=== PATIENT | male | born 1950 | race Hispanic/Latino ===

== ENCOUNTER 2016-10-25 20:16 | Emergency (ER) | payer MEDICARE ==
[2016-10-25 21:53] LABS: Basophils % (Auto) 0.4 % (0.0-1.8); Hematocrit 35.2 % (35.5-45.6); Hemoglobin 11.4 gm/dl (11.8-15.2); Mean Corpuscular HGB Conc 32 % (32-34); Mean Corpuscular Hemoglobin 28 pg (28-32); Mean Corpuscular Volume 86 fl (84-94); Platelet Count 183 K/mm3 (140-440); Red Blood Count 4.11 M/mm3 (3.65-5.03)
--- NOTE | 2016-10-25 22:00 | Emergency Department Report ---
- General Chief Complaint: Upper Respiratory Infection Stated Complaint: TOI Time Seen by Provider: 10/25/16 21:53 Source: patient Mode of arrival: Ambulatory Limitations: No Limitations - History of Present Illness Initial Comments: This is a pleasant 66-year-old gentleman who reports exertional dyspnea for the past couple of weeks. He actually was in the hospital he can go with a very significant illness due to hyperglycemia, acute renal failure, hyperkalemia. He did spend several days in the ICU. Sugars were normalized. And ultimately he went back home on October 18. He states even prior to his hospitalizations was us especially since he's noted increasing shortness of breath. He says a sensation of phlegm that he is not able to mobilize in his chest. He states that occasionally get a bunch out and he does subjectively feel improved when he is able to get this to come out. He denies fevers. Again he does report increased fatigue. He has been compliant with all the medications given to him through his doctor. Of note as well just after discharge she reported getting a rash on his arms and neck and anterior chest wall region as well. He states that this was initially very itchy. It is now somewhat improved. - Related Data Home Medications Medication Instructions Recorded Confirmed Last Taken Ranitidine HCl [Ranitidine 150mg 150 mg PO BID 07/25/13 10/15/16 10/14/16 Cap] Amiodarone HCl [Amiodarone 100 MG 200 mg PO DAILY 10/15/16 10/15/16 10/14/16 TAB] Previous Rx's Medication Instructions Recorded Last Taken Type Aspirin [Aspirin TAB] 325 mg PO QDAY #30 tablet 10/17/16 Unknown Rx Atenolol [Tenormin] 25 mg PO BID #60 tablet 10/17/16 Unknown Rx AtorvaSTATin [Lipitor] 20 mg PO HS #30 tablet 10/17/16 Unknown Rx Benzonatate [Tessalon Perles] 100 mg PO Q8HR #15 capsule 10/17/16 Unknown Rx Bisacodyl [Dulcolax suppos] 10 mg NJ QDAY PRN #20 supp.rect 10/17/16 Unknown Rx Insulin Detemir [Levemir] 20 units SUB-Q DAILY 30 Days 10/17/16 Unknown Rx Doxycycline [Vibramycin CAP] 100 mg PO Q12HR #14 capsule 10/25/16 Unknown Rx Allergies Allergy/AdvReac Type Severity Reaction Status Date / Time No Known Allergies Allergy Unverified 07/25/13 17:33 ED Review of Systems ROS: Stated complaint: TOI Other details as noted in HPI Comment: All other systems reviewed and negative Constitutional: denies: chills, fever Eyes: denies: eye pain, eye discharge, vision change ENT: denies: ear pain, throat pain Respiratory: cough, shortness of breath, SOB with exertion. denies: wheezing Cardiovascular: denies: chest pain, palpitations Endocrine: no symptoms reported Gastrointestinal: denies: abdominal pain, nausea, diarrhea Genitourinary: other (normal urine output reported.). denies: urgency, dysuria Musculoskeletal: denies: back pain, joint swelling, arthralgia Skin: rash. denies: lesions Neurological: denies: headache, weakness, paresthesias Psychiatric: denies: anxiety, depression Hematological/Lymphatic: denies: easy bleeding, easy bruising ED Past Medical Hx - Past Medical History Previous Medical History?: Yes Hx Hypertension: Yes Hx Heart Attack/AMI: Yes Hx Congestive Heart Failure: No Hx Diabetes: Yes Hx GERD: Yes Hx Asthma: No Hx COPD: No Hx HIV: No - Surgical History Past Surgical History?: Yes Hx Coronary Stent: Yes (2001) Hx Open Heart Surgery: Yes (triple CABG 2004) Additional Surgical History: Left hip and pelvic surgury w/hip replacement 2006 - Social History Smoking Status: Never Smoker Substance Use Type: Marijuana - Medications Home Medications: Home Medications Medication Instructions Recorded Confirmed Last Taken Type Ranitidine HCl [Ranitidine 150mg 150 mg PO BID 07/25/13 10/15/16 10/14/16 History Cap] Amiodarone HCl [Amiodarone 100 MG 200 mg PO DAILY 10/15/16 10/15/16 10/14/16 History TAB] Aspirin [Aspirin TAB] 325 mg PO QDAY #30 tablet 10/17/16 Unknown Rx Atenolol [Tenormin] 25 mg PO BID #60 tablet 10/17/16 Unknown Rx AtorvaSTATin [Lipitor] 20 mg PO HS #30 tablet 10/17/16 Unknown Rx Benzonatate [Tessalon Perles] 100 mg PO Q8HR #15 capsule 10/17/16 Unknown Rx Bisacodyl [Dulcolax suppos] 10 mg NJ QDAY PRN #20 supp.rect 10/17/16 Unknown Rx Insulin Detemir [Levemir] 20 units SUB-Q DAILY 30 Days 10/17/16 Unknown Rx Doxycycline [Vibramycin CAP] 100 mg PO Q12HR #14 capsule 10/25/16 Unknown Rx ED Physical Exam - General Limitations: No Limitations General appearance: alert, in no apparent distress - Head Head exam: Present: atraumatic, normocephalic - Eye Eye exam: Present: normal appearance, EOMI. Absent: scleral icterus - ENT ENT exam: Present: normal exam, normal orophraynx, mucous membranes moist - Neck Neck exam: Present: normal inspection, full ROM. Absent: meningismus, lymphadenopathy - Respiratory Respiratory exam: Present: normal lung sounds bilaterally, other (appears slightly dyspneic while I walk in the room.). Absent: respiratory distress, wheezes, rales - Cardiovascular Cardiovascular Exam: Present: regular rate, normal rhythm. Absent: systolic murmur, diastolic murmur, rubs, gallop - GI/Abdominal GI/Abdominal exam: Present: soft, normal bowel sounds. Absent: distended, tenderness - Rectal Rectal exam: Present: deferred - Extremities Exam Extremities exam: Present: normal inspection. Absent: tenderness, pedal edema, calf tenderness - Back Exam Back exam: Present: normal inspection. Absent: tenderness, CVA tenderness (R), CVA tenderness (L) - Neurological Exam Neurological exam: Present: alert, oriented X3 - Psychiatric Psychiatric exam: Present: normal affect, normal mood - Skin Skin exam: Present: warm, dry, intact, normal color, rash (discrete lesions on the forearms and anterior chest and maybe of the neck. Plaque-like with the erythematous base) ED Course Vital Signs 10/25/16 10/25/16 10/25/16 20:41 21:18 21:30 Temperature 98.3 F Pulse Rate 60 70 58 L Respiratory 24 19 17 Rate Blood Pressure 127/74 161/88 O2 Sat by Pulse 96 99 97 Oximetry 10/25/16 10/25/16 10/25/16 21:32 22:00 22:20 Temperature Pulse Rate 58 L 60 Respiratory 16 18 Rate Blood Pressure 161/88 161/88 O2 Sat by Pulse 98 97 97 Oximetry 10/25/16 10/25/16 10/25/16 22:30 23:00 23:30 Temperature Pulse Rate 59 L 57 L 56 L Respiratory 20 24 21 Rate Blood Pressure 160/78 160/87 150/84 O2 Sat by Pulse 95 91 98 Oximetry 10/26/16 10/26/16 00:00 00:30 Temperature Pulse Rate 56 L 56 L Respiratory 20 13 Rate Blood Pressure 158/88 148/79 O2 Sat by Pulse 97 97 Oximetry - Reevaluation(s) Reevaluation #1: 10/25/16 22:00 ECG with sinus rhythm and a first-degree AV block with a NJ of 254 ms. Also noted to have large right bundle branch block with a QRS duration 156 ms. Also with left ventricular left anterior fascicular block. Consistent with a trifascicular block combination. Patient does note left axis as well as significant nonspecific ST-T changes. Reevaluation #2: 10/26/16 19:46 Chest x-ray as noted. It is unremarkable in general. I suspect the patient's cough is more cardiac in nature than due to a underlying respiratory infection. I do not suspect bronchitis. Patient is adamant in trial antibiotics. I'm not against this. I do not feel a little likely help his ultimate condition. He is also concerned about this rash that is been present for the last several days. It is nonspecific. I will treat it symptomatically for now with Benadryl for the itching. She does not identify any new medications or foods however. He is not having any lip or tongue swelling or breathing issues otherwise due to this. He will be with his juancarlos. I feel he is safe for home. ED Medical Decision Making - Lab Data Result diagrams: 10/25/16 21:30 10/25/16 21:30 - Radiology Data interpreted by me: Mild CMT with mild pulmonary congestion. Stable chest. No infiltrate. Critical care attestation.: If time is entered above; I have spent that time in minutes in the direct care of this critically ill patient, excluding procedure time. ED Disposition Clinical Impression: Dyspnea Qualifiers: Dyspnea type: shortness of breath Qualified Code(s): R06.02 - Shortness of breath Disposition: DISCHARGED TO HOME OR SELFCARE Is pt being admited?: No Does the pt Need Aspirin: No Condition: Stable Instructions: Dyspnea (ED) Additional Instructions: Make appointments with her topographical field assistant and her kidney doctor. Prescriptions: Doxycycline [Vibramycin CAP] 100 mg PO Q12HR #14 capsule Referrals: PRIMARY CARE, [Primary Care Provider] - 3-5 Days Time of Disposition: 23:52
[2016-10-25 22:06] LABS: BUN/Creatinine Ratio 12.77; Calcium 8.5 mg/dL (8.4-10.2); Chloride 102.6 mmol/L (98-107); Potassium 4.8 mmol/L (3.6-5.0)
[2016-10-25] MEDS ORDERED: PROVENTIL IH ONE (22:06)
[2016-10-26 00:48] VITALS: BP 148/79
[2016-10-26] MEDS ORDERED: BENADRYL PO ONE ×2 (00:49→01:06)
--- NOTE | 2016-10-26 09:53 | XRay Report ---
ROUTINE CHEST, TWO VIEWS: HISTORY: Short of breath. Compared to 10/15/16. Borderline to mild cardiomegaly. Trace pleural effusions on the lateral image. The lungs are clear. Calcified granuloma in the right upper lobe is noted. No pneumothorax. IMPRESSION: Correlate for mild CHF.
== END 2016-10-26 01:08 | disposition home or self-care (01) ==
LOC: ED 20:16
DX: R06.02 Shortness of breath (principal); I10 Essential (primary) hypertension; I25.2 Old myocardial infarction; E11.9 Type 2 diabetes mellitus without complications; K21.9 Gastro-esophageal reflux disease without esophagitis; F12.10 Cannabis abuse, uncomplicated
CPT/HCPCS: 36415; 71020; 80048; 84484; 85025; 93005; 93010; 94640; 99285